=== PATIENT | female | born 1995 | race Caucasian/White ===

== ENCOUNTER 2025-05-18 20:54 | Emergency (ER) | payer OTHER, SELFPAY ==
[2025-05-18 20:56] VITALS: BP 134/91; PULSE 93; RESP 16; TEMP 36.2; O2SAT 100; BMI 28.6
--- NOTE | 2025-05-18 21:10 | EDS_ITS ---
HPI History of Present Illness Chief Complaint: Lower Extremity Injury Narrative Narrative: Patient is a 29-year-old female with no known significant past medical history who presented to the emergency department the chief complaint of right foot pain and redness. States that she woke up yesterday morning and noted that she had some pain on the right foot she denies any injury or trauma to her right foot. States that she noted some redness there and notes that she worked a full shift at 12 hours. States that she went to get ready for work again and noted that there was more pain and more redness therefore she came here to be further evaluated. PFSH PFSH Home Medications ?Medication ?Instructions ?Recorded ?Last Taken ?Type doxycycline hyclate 100 mg capsule 100 mg PO BID #10 c aps 05/18/25 Unknown Rx Allergy/AdvReac Type Severity Reaction Status Date / Time amoxicillin Allergy Severe Angioedema Verified 05/18/25 20:57 Social History Smoking Status: Current every day smoker tobacco type: e-cigarettes ROS ROS ED ROS Narrative Constitutional: Denies any fevers or chills Neurological: Denies numbness, weeks, tingling Musculoskeletal: Planes of right foot pain with redness as noted above Skin: Complains of right foot redness as noted above EXAM Physical Exam Narrative Exam Narrative: General: Patient lying in bed rest comfortably did not appear to be in acute distress Head: Atraumatic, normocephalic Eyes: PERRL bilaterally, EOMI bilaterally, no conjunctival injection noted Neck: Soft, supple, trachea midline Cardiovascular: Regular rate Extremities: Tenderness to palpation over the fifth metatarsal region on the right foot, DP pulses +2/4 in the right lower extremity Neurological: Sensation grossly intact, patient following commands knew that she was at [facility] the year is 2024 Skin: Warm, dry, patient does have erythema noted to the dorsal aspect of her right foot laterally no petechia no purpura no sloughing of the skin noted Const Vital Signs: 05/18/25 20:56 05/18/25 21:42 Temperature 97.2 F L 97.2 F L Temperature Source Temporal Pulse Rate 93 78 Respiratory Rate 16 16 Blood Pressure 134/91 H 118/71 Blood Pressure Mean 105 86 Pulse Ox 100 100 Oxygen Delivery Method Room Air MDM MDM MDM Narrative Medical decision making narrative: Patient is a 29-year-old female who presented to the emergency department with a chief complaint of right foot pain and redness. On the differential diagnosis includes but not limited to fracture, cellulitis. Once workup is obtained and reviewed she will be reevaluated. Patient's x-ray of the foot reviewed by myself by radiology showed no acute fracture or dislocation. Discussed results with the patient and she would like to go home she will be given a dose of doxycycline here will be given a prescription for doxycycline. She is encouraged return with worsening symptoms or concerns. She is agreeable this plan as well as family bedside all question concerns answered she was discharged home in stable condition Radiography Diagnostic Testing: Clinical Impression(s) from Imaging Studies Foot X-Ray 05/18/25 21:20 IMPRESSION: No acute or aggressive osseous abnormality. Reading Location: [facility] Discharge Plan Triage Chief Complaint: Lower Extremity Injury ED Provider: Anshul Ernandez Dx/Rx/DC Orders Clinical Impression: Cellulitis of foot, Foot pain, right Prescriptions: New doxycycline hyclate 100 mg capsule 100 mg PO BID Qty: 10 0RF Stand Alone Forms: ED Work / School Excuse Primary Care Provider: Care Physician,No Primary Referrals: Care Physician,No Primary [Primary Care Provider, Medical] Kaley Watters HOU[employer] WORKER-[employer] [facility] Activity Restrictions/Additional Instructions: Take antibiotics as prescribed. Return with worsening symptoms or other concerns. Print Language: [place] Disposition Disposition: Home, Self Care
--- NOTE | 2025-05-18 21:20 | RAD_ITS ---
PROCEDURE: FOOT MIN 3 VIEWS 05/18/2025 REASON FOR EXAM: 4TH 5TH METATARSAL PAIN TECHNIQUE: Procedure Code: RADFO Modality: DX Procedure: FOOT MIN 3 VIEWS Laterality: Right COMPARISON: None. FINDINGS: No acute fracture or dislocation. Alignment is anatomic. Preserved joint spaces. No aggressive osseous lesion. No marked soft tissue swelling or radiopaque foreign body. RAD/Foot min 3 Views IMPRESSION: No acute or aggressive osseous abnormality. Reading Location: [id number]
[2025-05-18 21:42] VITALS: BP 118/71; PULSE 78; RESP 16; TEMP 36.2; O2SAT 100
== END 2025-05-18 21:59 | disposition home or self-care (01) ==
PROVIDERS: Emergency Provider Emergency Medicine; Visit Provider Emergency Medicine
DX: L03.111 Cellulitis of right axilla (principal); M79.671 Pain in right foot; F17.290 Nicotine dependence, other tobacco product, uncomplicated
CPT/HCPCS: 73630; 99282